=== PATIENT | male | born 1960 | race Hispanic/Latino ===

== ENCOUNTER 2017-06-16 07:04 | Day surgery (SDC) | payer MEDICAID ==
[2017-06-16] MEDS ORDERED: NACL 0.9% 1000 ML 1,000 ML IV SCH (08:00)
[2017-06-16] MEDS ORDERED: XYLOCAINE MPF 2% ONE (08:26)
[2017-06-16] MEDS ORDERED: DIPRIVAN 10 MG/ML IV ONE ×2 (08:40)
--- NOTE | 2017-06-16 08:43 | Anesthesia Consultation ---
Anesthesia Consult and Med Hx Date of service: 06/16/17 - Airway Anesthetic Teeth Evaluation: Dentures ROM Head & Neck: Adequate Mental/Hyoid Distance: Adequate Mallampati Class: Class II Intubation Access Assessment: Probably Good - Pulmonary Exam CTA: Yes - Cardiac Exam Cardiac Exam: RRR - Pre-Operative Health Status ASA Pre-Surgery Classification: ASA3 Proposed Anesthetic Plan: MAC - Pulmonary Hx Smoking: Yes (QUIT IN 2013, 1PPD X 30+ YRS) COPD: Yes Home Oxygen Therapy: No - Cardiovascular System Hx Hypertension: No - Central Nervous System Hx Seizures: No CVA: No - Endocrine Hx Liver Disease: Yes (HEP C) - Other Systems Hx Alcohol Use: Yes (H/O ALCOHOL ABUSE) Hx Obesity: No
--- NOTE | 2017-06-16 08:43 | Anesthesia Day of Surgery ---
Anesthesia Day of Surgery - Day of Surgery Patient Examined: Yes Patient is NPO: Yes Beta Blockers: No Noah's Test: N/A
--- NOTE | 2017-06-16 08:54 | Short Stay Summary ---
Short Stay Documentation Date of service: 06/16/17 Narrative H&P: The patient presents for EGD for exclusion of esophageal varices due to cirrhosis of the liver. 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 and ETOH) Past Surgical History: Other (hx bone fx) Social history: no significant social history, single, other (Prior history of ETOH and tobacco use) - Allergies and Medications Current Medications: Allergies codeine Adverse Reaction (Verified 06/15/17 10:17) Nausea Home Medications Medication Instructions Recorded Confirmed Last Taken Type ALBUTEROL Inhaler 1 puff INHALATION PRN PRN 06/15/17 06/16/17 06/15/17 History Ferrous Sulfate 325 mg PO DAILY 06/15/17 06/16/17 Unknown History Dilaudid 4 mg PO QID 06/16/17 06/16/17 06/16/17 History Active Medications Sodium Chloride (Nacl 0.9% 1000 Ml) 1,000 mls @ 50 mls/hr IV DIRECT TELLO - Physical exam General appearance: no acute distress, well-nourished Integumentary: no rash, no growths, no abnormal pigmentation HEENT: Atraumatic, PERRLA, EOMI, Mucous membr. moist/pink Lungs: Clear to auscultation, Normal air movement Breasts: deferred Heart: Regular rate, Normal S1, Normal S2, No murmurs Gastrointestinal: normoactive bowel sounds, no tenderness, no distended, no masses, no organomegaly, no obese Male Genitourinary: deferred Rectal Exam: deferred Extremities: no ischemia, pulses intact, No edema, Full ROM Neurological: Normal gait, Normal speech, Strength at 5/5 X4 ext, Normal tone, Sensation intact, Cranial nerves 3-12 NL - Brief post op/procedure progress note Date of procedure: 06/16/17 Procedure: see dictated report Estimated blood loss: none Pathology: none Condition: stable - Disposition Condition at discharge: Good Disposition: DC-01 TO HOME OR SELFCARE - Discharge Diagnoses (1) Cirrhosis of liver Status: Acute Short Stay Discharge Plan Activity: advance as tolerated, avoid flexion (no driving for 24 hours), other Weight Bearing Status: Weight Bear as Tolerated Diet: regular Follow up with: MICHAEL HO MD [Primary Care Provider] - 7 Days
--- NOTE | 2017-06-16 08:57 | Operative Report ---
Operative Report Operative Report: Date of procedure: 06/16/2017 Procedure: Esophagogastroduodenoscopy Preprocedure diagnosis: Cirrhosis secondary to hepatitis C and alcohol. Procedure performed to exclude esophageal varices. Post procedure diagnosis: Mild distal esophagitis with one linear erosion Endoscopist: Dr. Patel Anesthesia: Monitored anesthesia care per anesthesia department Medications: Propofol per anesthesia Estimated blood loss: 0 After careful discussion of the nature and purpose of the procedure as well as details the technique risks benefits and alternatives consent was obtained. The patient was placed in the left lateral decubitus position and medicated per anesthesia. The tip of the [employer] EQ 570 video scope was passed per orum under direct vision into the esophagus and advanced into the stomach and descending duodenum. The descending duodenum the duodenal bulb and pylorus were symmetrical and normal. The scope was withdrawn into the stomach and the stomach then gently insufflated with air. The antrum was normal. The stomach was further insufflated and the scope was then retroflexed and partially withdrawn. The cardia, fundus, and body of the stomach were within normal limits and easily distensible.The scope was then withdrawn in the forward position. The esophagogastric junction was at 40 cm. There was a tiny linear erosion approximately 5 mm in length above the Z line.. The esophageal body was otherwise normal throughout. The procedure was was well tolerated and the patient was observed in recovery. Impressions: Mild distal esophagitis. No evidence of esophageal or gastric varices. Plan: H2 receptor antagonist therapy. Repeat endoscopy in 2-3 years. Electronically signed: Jessee Patel MD
[2017-06-16 09:39] VITALS: BP 115/78
--- NOTE | 2017-06-16 12:23 | Post Anesthesia Evaluation ---
- Post Anesthesia Evaluation Patient Participated: Yes Airway Patent: Yes Stable Respiratory Function: Yes Nausea/Vomiting: No Temp > 96.8F: Yes Pain Manageable: Yes Adequeate Hydration: Yes Anesthesia Complications: No Block Receding Appropriately: Not Applicable Patient on Ventilator: No
== END 2017-06-16 07:05 | disposition home or self-care (01) ==
LOC: GIO 07:04
PROVIDERS: ATTEND Internal Medicine Gastroenterology
DX: K74.60 Unspecified cirrhosis of liver (principal); I85.10 Secondary esophageal varices without bleeding; B19.20 Unspecified viral hepatitis C without hepatic coma; B18.2 Chronic viral hepatitis C; K20.9 Esophagitis, unspecified; G89.29 Other chronic pain; D64.9 Anemia, unspecified; J44.9 Chronic obstructive pulmonary disease, unspecified; Z88.5 Allergy status to narcotic agent; Z87.891 Personal history of nicotine dependence
CPT/HCPCS: 43235; J2704; J7030

== ENCOUNTER 2021-12-18 14:41 | Outpatient (CLI) | payer MEDICAID ==
--- NOTE | 2021-12-18 18:57 | XRay Report ---
Lumbar spine 5 views INDICATION: Low back pain without history of injury IMPRESSION: Mild multilevel discogenic and facet arthropathy throughout the lumbar spine with mild sc oliosis. No obvious fracture or subluxation is identified. Signer Name: Yrn Fuller MD Signed: 12/18/2021 6:53 PM Workstation Name: [id number]
== END 2021-12-18 14:42 | disposition home or self-care (01) ==
LOC: XRAY 14:41
PROVIDERS: ATTEND Orthopaedic Surgery
DX: M41.87 Other forms of scoliosis, lumbosacral region (principal)
CPT/HCPCS: 72110

== ENCOUNTER 2022-02-03 10:50 | Outpatient (CLI) | payer MEDICAID ==
--- NOTE | 2022-02-03 15:36 | Magnetic Resonance Report ---
MR lumbar spine wo con INDICATION / CLINICAL INFORMATION: 61 years Male; M54.50 LOW BACK PAIN,UNSPECIFIED. TECHNIQUE: Multisequence, multiplanar images of the lumbar spine were obtained. COMPARISON: None available. FINDINGS: ALIGNMENT: This mild levoscoliosis of the lumbar spine. There is no significant spondylolisthesis. VERTEBRAE:There is mild generative endplate edema anteriorly and on the right at L2-3 and L3-L4. VISUALIZED SPINAL CORD: The distal spinal cord appears to demonstrate appropriate signal intensity an d terminates at L1-2. [id number] ANALYSIS: L1-2: No significant abnormality. L2-3: The disc bulge appears to slightly encroach on the right lateral recess. There is mild right ne ural foraminal narrowing. L3-4: The broad-based disc bulge on the right mildly deforms the thecal sac. There is moderate right neural foraminal narrowing L4-5: The left-sided at disc bulge mildly deforms the left thecal sac. There is moderate to left neur al foraminal narrowing. L5-S1: The disc bulge slightly flattens the ventral thecal sac. There is a left foraminal disc bulge and facet joint arthropathy which results in moderate left neural foraminal narrowing. PARASPINAL SOFT TISSUES: No significant abnormality. ADDITIONAL FINDINGS: No epidural collections are identified. IMPRESSION: 1. This mild levoscoliosis of the lumbar spine with multilevel degenerative the changes and disc bulg es as detailed above. Additionally, there is moderate neural from narrowing on the right at L3-4 and on the left at L5-S1. Signer Name: Blayne Radford MD Signed: 02/03/2022 3:31 PM Workstation Name: [id number]
== END 2022-02-03 10:51 | disposition home or self-care (01) ==
LOC: MRI 10:50
PROVIDERS: ATTEND Orthopaedic Surgery
DX: M48.07 Spinal stenosis, lumbosacral region (principal); M51.37 Other intervertebral disc degeneration, lumbosacral region
CPT/HCPCS: 72148